=== PATIENT | female | born 1960 | race American Indian/Alaskan Native ===

== ENCOUNTER 2017-03-16 09:12 | Outpatient (CLI) | payer OTHER ==
--- NOTE | 2017-03-17 09:04 | Mammography Report ---
BILATERAL MAMMOGRAM with CAD: HISTORY: Baseline digital screening for cancer. The patient's prior mammogram was greater than 10 years ago and is unavailable. FINDINGS: The breast tissue is heterogeneously dense, which could obscure detection of small masses (approximately 50%-75% glandular). No mass, distortion, suspicious calcification, or skin change is seen. Scattered round benign calcifications are noted bilaterally. IMPRESSION: Negative mammogram. There is no mammographic evidence of malignancy. RECOMMENDATION: Follow-up per ACS guidelines. BI-RADS CATEGORY: 1 = Negative ACR BI-RADS MAMMOGRAPHIC CODES: 0 = Needs additional imaging evaluation; 1 = Negative; 2 = Benign; 3 = Probably benign; 4 = Suspicious; 5 = Malignant; 6 = Known biopsy-proven malignancy COMMENT: 1. Dense breast tissue, i.e., adenosis, fibrocystic changes, etc., may obscure an underlying neoplasm. 2. Approximately 10% of cancers are not detected with mammography. 3. A negative mammography report should not delay biopsy if a clinically suspicious mass is present. COMMENT: Patient follow-up letters are generated in [employer].
== END 2017-03-16 09:13 | disposition home or self-care (01) ==
LOC: MAMMO 09:12
PROVIDERS: ATTEND Family Medicine
DX: Z12.31 Encounter for screening mammogram for malignant neoplasm of breast (principal); F17.200 Nicotine dependence, unspecified, uncomplicated
CPT/HCPCS: 77067; G0202

== ENCOUNTER 2017-05-16 10:28 | Emergency (ER) | payer OTHER ==
[2017-05-16 11:18] LABS: Basophils % (Auto) 0.6 % (0.0-1.8); Eosinophils % (Auto) 0.1 % (0.0-4.3); Hematocrit 33.4 % (30.3-42.9); Hemoglobin 11.5 gm/dl (10.1-14.3); Mean Corpuscular HGB Conc 35 % (30-34); Mean Corpuscular Hemoglobin 28 pg (28-32); Mean Corpuscular Volume 81 fl (79-97); Platelet Count 204 K/mm3 (140-440); Red Blood Count 4.12 M/mm3 (3.65-5.03); Red Cell Distribution Width 13.8 % (13.2-15.2); White Blood Count 7.3 K/mm3 (4.5-11.0)
[2017-05-16 11:34] LABS: Alanine Aminotransferase 50 units/L (7-56); Albumin 3.7 g/dL (3.9-5); Albumin/Globulin Ratio 1.1 %; Alkaline Phosphatase 94 units/L (35-129); Anion Gap 18 mmol/L; Blood Urea Nitrogen 13 mg/dL (7-17); Calcium 9.1 mg/dL (8.4-10.2); Carbon Dioxide 23 mmol/L (22-30); Chloride 99.1 mmol/L (98-107); Glucose 120 mg/dL (65-100); Potassium 3.5 mmol/L (3.6-5.0); Sodium 137 mmol/L (137-145); Total Protein 7.1 g/dL (6.3-8.2)
[2017-05-16 12:38] LABS: Lipase 48 units/L (13-60)
[2017-05-16] MEDS ORDERED: TORADOL IM ONE (16:18)
--- NOTE | 2017-05-16 16:20 | Emergency Department Report ---
HPI - General Chief Complaint: Abdominal Pain Time Seen by Provider: 05/16/17 16:06 - HPI HPI: 56-year-old female presents to ER with complaints of malaise, nausea, vomiting, loose stools on and off 3 days. Patient was seen by her primary care recently and following some evaluation, she was commenced on Flagyl. She reports to ED this afternoon, complaining of malaise, chills, pain in her right shoulder region, dysuria and frequency and vaginal discharge. ED Past Medical Hx - Past Medical History Previous Medical History?: No - Surgical History Past Surgical History?: Yes Hx Breast Surgery: Yes (breast biopsy bilateral) Additional Surgical History: partial hysterectomy - Social History Smoking Status: Current Every Day Smoker Substance Use Type: None - Medications Home Medications: Home Medications Medication Instructions Recorded Confirmed Last Taken Type Cyclobenzaprine [Flexeril 10 MG 10 mg PO Q8H PRN #21 tablet 04/26/15 Unknown Rx TAB] Diclofenac Dr [Voltaren Dr] 75 mg PO Q12H #20 tablet 04/26/15 Unknown Rx HYDROcodone/APAP 5-325 [[place] 1 each PO Q6HR PRN #20 tablet 04/26/15 Unknown Rx 5/325] Prednisone [predniSONE 10 mg 10 mg PO .TAPER #1 tab.ds.pk 11/16/15 Unknown Rx (6-Day Pack, 21 Tabs)] Promethazine /Codeine 5 ml PO Q6H PRN #100 ml 11/16/15 Unknown Rx [Phenergan/Codeine 6.25-10 mg/5Ml] Sulfamethoxazole/Trimethoprim 1 each PO BID #20 tablet 05/16/17 Unknown Rx [Bactrim DS TAB] ED Review of Systems ROS: Stated complaint: ABDOMINAL PAIN Other details as noted in HPI Constitutional: see HPI, chills, fever, malaise, weakness Eyes: denies: eye pain, eye discharge, vision change ENT: congestion (nasal rhinorrhea). denies: dental pain, hearing loss, epistaxis Respiratory: cough (dry cough). denies: shortness of breath, SOB with exertion , SOB at rest, wheezing Cardiovascular: denies: chest pain, palpitations, dyspnea on exertion, orthopnea , edema, syncope Endocrine: no symptoms reported Gastrointestinal: abdominal pain, diarrhea. denies: nausea, vomiting, hematemesis, melena, hematochezia Genitourinary: urgency, dysuria, frequency, discharge (yellowish vaginal discharge) Musculoskeletal: denies: back pain, joint swelling, arthralgia, myalgia Skin: denies: change in color, change in hair/nails, pruritus Neurological: weakness. denies: headache, numbness, paresthesias Psychiatric: denies: depression, auditory hallucinations, visual hallucinations Physical Exam - Physical Exam Vital Signs: Vital Signs 05/16/17 10:30 Temperature 98 F Pulse Rate 91 H Respiratory 18 Rate Blood Pressure 115/72 O2 Sat by Pulse 100 Oximetry General: On examination, patient not observed to be in distress, afebrile, pale, anicteric, not dehydrated. Vital signs appear to be stable. 7 HEENT atraumatic normocephalic CATHERINE, EOMI, TM intact, Nose normal Respiratory: equal and clear in all lung padron Chest heart sounds S1 and S2 no murmur Abdomen soft nontender, no organomegaly bowel sounds normal Extremities normal exam, good range of movements in all extremities no calf tenderness. Neuro : Alert and oriented in all spheres, no focal lateralizing signs ED Course Vital Signs 05/16/17 10:30 Temperature 98 F Pulse Rate 91 H Respiratory 18 Rate Blood Pressure 115/72 O2 Sat by Pulse 100 Oximetry ED Medical Decision Making - Lab Data Result diagrams: 05/16/17 10:53 05/16/17 10:53 - Medical Decision Making Patient has evidence of UTI Patient will follow up with her primary care Critical Care Time: No Critical care attestation.: If time is entered above; I have spent that time in minutes in the direct care of this critically ill patient, excluding procedure time. ED Disposition Clinical Impression: Urinary tract infection Disposition: DC-01 TO HOME OR SELFCARE Is pt being admited?: No Does the pt Need Aspirin: No Condition: Stable Instructions: Abdominal Pain (ED) Prescriptions: Sulfamethoxazole/Trimethoprim [Bactrim DS TAB] 1 each PO BID #20 tablet Referrals: PRIMARY CARE, [Primary Care Provider] - 3-5 Days
[2017-05-16 17:10] LABS: Bacteria,Urine 1+ /HPF (Negative); Bilirubin,Urine NEG (Negative); Blood,Urine LG (Negative); Ketones,Urine NEG (Negative); Leukocyte Esterase,Urine LG (Negative); Mucus,Urine FEW /HPF; Nitrite,Urine NEG (Negative); Urobilinogen,Urine < 2.0 mg/dL (<2.0); WBC,Urine > 182.0 /HPF (0.0-6.0)
[2017-05-16] MEDS ORDERED: XYLOCAINE 1% MPF 5 mL INFILTRATI ONE (17:13)
[2017-05-16] MEDS ORDERED: ROCEPHIN IM ONE (17:13)
[2017-05-16] MEDS ORDERED: ZOFRAN ODT PO ONE (17:16)
[2017-05-16 18:49] VITALS: BP 111/57
== END 2017-05-16 18:48 | disposition home or self-care (01) ==
LOC: ED 10:28
DX: R19.7 Diarrhea, unspecified (principal); N39.0 Urinary tract infection, site not specified; F17.200 Nicotine dependence, unspecified, uncomplicated
CPT/HCPCS: 36415; 80053; 81001; 83690; 85025; 96372; 99283; J0696; J1885; Q0162

== ENCOUNTER 2018-01-31 00:13 | Emergency (ER) | payer OTHER ==
[2018-01-31] MEDS ORDERED: TYLENOL ONE (02:47)
[2018-01-31] MEDS ORDERED: TYLENOL PO ONE (02:59)
[2018-01-31] MEDS ORDERED: NORCO 7.5/325 ONE (04:09)
[2018-01-31] MEDS ORDERED: NORCO 7.5/325 PO ONE (04:12)
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
[2018-01-31 06:30] VITALS: BP 149/66
--- NOTE | 2018-02-01 14:29 | XRay Report ---
FINAL REPORT EXAM: XR FOREARM RT HISTORY: right forearm pain COMPARISON: None available. FINDINGS: Two views of right forearm obtained. There is a transverse nondisplaced fracture of the ulnar styloid process. Transverse impacted fracture of the distal radial metaphysis. Slight dorsal angulation of the distal fracture segment. Degenerative changes the 1st carpometacarpal joint triscaphe joint. Gross normal alignment of the carpal bones relative to the distal articular surface of the radius. Proximal mid portions of radius and ulna are intact. Elbow joint space grossly preserved. IMPRESSION: Fracture of the distal radius and ulnar styloid process.
--- NOTE | 2018-02-01 14:29 | XRay Report ---
FINAL REPORT EXAM: XR WRIST 2V RT HISTORY: right wrist pain COMPARISON: Right forearm from the same date. FINDINGS: Two views of right wrist obtained. Transverse nondisplaced fracture of the ulnar styloid process. Transverse impacted fracture distal radial metaphysis with slight dorsal angulation of the distal fracture segment. Moderate degenerative changes the 1st carpometacarpal joint. Normal alignment of the carpal bones relative the distal articular surface of the radius. IMPRESSION: Nondisplaced fracture of the ulnar styloid process and transverse impacted fracture of the distal radial metaphysis with slight dorsal angulation of the distal fracture segment.
--- NOTE | 2018-02-01 14:29 | Cat Scan Report ---
FINAL REPORT EXAM: CT HEAD/BRAIN WO CON HISTORY: head injury TECHNIQUE: CT imaging acquired through the head without intravenous contrast. Transaxial reformations are provided. PRIORS: None. FINDINGS: The ventricles, cisterns and sulci are within normal limits. No intraparenchymal or extra-axial mass, hemorrhage, or mass effect. [place] and white-matter differentiation is within normal limits for patient age. Normal spherical shape of the globes. No significant abnormality involving the imaged portions of the paranasal sinuses and mastoid air cells. No acute skull or facial fracture is visualized. There is an expansile and heterogeneous predominantly ground-glass attenuating right frontal skull lesion measuring approximately 3.3 x 1.8 cm. No cortical disruption or periosteal reaction identified. IMPRESSION: No acute intracranial abnormality. Expansile right frontal skull lesion is indeterminate with differential considerations including sequela of prior trauma or infection, fibrous dysplasia, vascular malformation or neoplasm. Overlying skin protrusion is evident. Correlation with any prior imaging and for palpability and chronicity is requested.
--- NOTE | 2018-02-01 14:29 | Cat Scan Report ---
FINAL REPORT EXAM: CT CERVICAL SPINE WO CON HISTORY: head injury TECHNIQUE: CT imaging is acquired through the cervical spine without contrast. Transaxial, coronal and sagittal reformations are provided. PRIORS: None. FINDINGS: The cervical spine is intact. Vertebral body heights are preserved. No acute fracture or listhesis. Atlanto-dens interval and odontoid process are intact. Intervertebral disc spaces are preserved. No perivertebral soft tissue swelling or hematoma identified. Limited soft tissue exam of the visualized neck is unremarkable. IMPRESSION: No acute cervical spine fracture identified. Correlate with physical exam and follow up as warranted.
== END 2018-01-31 06:43 | disposition home or self-care (01) ==
LOC: ED 00:13
DX: S52.614A Nondisplaced fracture of right ulna styloid process, initial encounter for closed fracture (principal); S00.03XA Contusion of scalp, initial encounter; M25.531 Pain in right wrist; M54.2 Cervicalgia; M62.838 Other muscle spasm; F17.200 Nicotine dependence, unspecified, uncomplicated; Z90.711 Acquired absence of uterus with remaining cervical stump; W17.89XA Other fall from one level to another, initial encounter; Y93.89 Activity, other specified; Y99.8 Other external cause status; Y92.099 Unspecified place in other non-institutional residence as the place of occurrence of the external cause
CPT/HCPCS: 70450; 72125